=== PATIENT | female | born 1955 ===

== ENCOUNTER 2022-04-20 10:15 | Day surgery (SDC) | payer MEDICAID ==
[~2022-04-20 10:15] MED LIST: LACTATED RINGERS 1,000 ML IV SCH; LIDOCAINE 1% (10MG/ML) FOR IV START INTRADERMA PRN
[2022-04-20] MEDS ORDERED: LACTATED RINGERS 1,000 ML IV ONE (11:03)
[2022-04-20 11:17] VITALS: TEMP 97.2
[2022-04-20] MEDS ORDERED: PROPOFOL 10 MG/ML 20 ML VIAL IV ONE (11:40)
--- NOTE | 2022-04-20 11:45 | P.GSHP ---
History of Present Illness H&P Date: 04/20/22 Chief Complaint: Abnormal stool test 66-year-old female had a recent cologuard positive per patient. No bowel complaints. Family history of colon cancer in a grandmother. She has not had a previous colonoscopy. Past Medical History Past Medical History: GERD/Reflux, Hypertension History of Any Multi-Drug Resistant Organisms: None Reported Additional Past Surgical History / Comment(s): cervical fusion, d & c , cataracts removed saige Past Anesthesia/Blood Transfusion Reactions: No Reported Reaction Smoking Status: Never smoker Medications and Allergies Home Medications Medication Instructions Recorded Confirmed Type Enalapril [Vasotec] 10 mg PO BID 04/15/22 04/20/22 History FLUoxetine HCL [PROzac] 20 mg PO DAILY 04/15/22 04/20/22 History Pantoprazole [Protonix] 1 tab PO DAILY 04/15/22 04/20/22 History Zolpidem [Ambien] 12.5 mg PO HS PRN 04/15/22 04/20/22 History hydroCHLOROthiazide 25 mg PO DAILY 04/15/22 04/20/22 History Allergies Allergy/AdvReac Type Severity Reaction Status Date / Time ibuprofen AdvReac Abdominal Verified 04/20/22 11:17 Pain Surgical - Exam Vital Signs Temp Pulse Resp BP Pulse Ox 97.2 F L 92 16 152/67 95 04/20/22 11:15 04/20/22 11:15 04/20/22 11:15 04/20/22 11:15 04/20/22 11:15 Physical exam: General: Well-developed, well-nourished HEENT: Normocephalic, sclerae nonicteric Abdomen: Nontender, nondistended Extremities: No edema Neuro: Alert and oriented Assessment and Plan (1) Abnormal stool test Narrative/Plan: Will proceed with colonoscopy at this time. Current Visit: Yes Status: Acute Code(s): R19.5 - OTHER FECAL ABNORMALITIES SNOMED Code(s): 170450426
--- NOTE | 2022-04-20 12:06 | P.PCN ---
Date of Procedure: 04/20/22 Procedure(s) Performed: PREOPERATIVE DIAGNOSIS: Abnormal stool test POSTOPERATIVE DIAGNOSIS: Ascending colon polyp, rectal polyp, diverticulosis, tortuous colon PROCEDURE: Colonoscopy with snare polypectomy ANESTHESIA: MAC SURGEON: Rodger Ellison M.D. SPECIMENS: Polyps ENDOSCOPIC PROCEDURE: The patient was placed on the endoscopy table in the left decubitus position. The Olympus colonoscope was inserted into the anus and passed under direct visualization to the base of the cecum. The appendiceal noah fice was visualized. From that point the scope was slowly withdrawn inspecting all surfaces carefully. There were no neoplastic inflammatory or polypoid lesions throughout the cecum. In the ascending colon a small polyp was seen and removed using snare with cautery technique. The remainder of the ascending transverse descending and sigmoid colon appeared normal. In the rectum another small polyp was seen and removed using the snare technique. There was mild scattered diverticulosis. Digital rectal examination was normal. The patient was taken to the recovery room in stable condition per anesthesia guidelines. RECOMMENDATIONS: Await biopsy results. Repeat colonoscopy 5-7 years.
[2022-04-20 12:25] VITALS: BP 136/67; PULSE 76; RESP 16
== END 2022-04-20 12:48 | disposition home or self-care (01) ==
LOC: ORWHC2ENDO 10:15
PROVIDERS: ATTEND Surgery
DX: R19.5 Other fecal abnormalities (principal); D12.2 Benign neoplasm of ascending colon; K62.1 Rectal polyp; K57.30 Diverticulosis of large intestine without perforation or abscess without bleeding; I10 Essential (primary) hypertension; K21.9 Gastro-esophageal reflux disease without esophagitis; Z88.6 Allergy status to analgesic agent; Z79.899 Other long term (current) drug therapy; Z80.0 Family history of malignant neoplasm of digestive organs
CPT/HCPCS: 88305; 45385; J2704

== ENCOUNTER 2024-06-16 08:57 | Observation (INO) | payer MEDICAID ==
--- NOTE | 2024-06-16 09:24 | ED ---
Abdominal Pain HPI - General Chief Complaint: Abdominal Pain Stated Complaint: R side abd pain Time Seen by Provider: 06/16/24 09:07 Source: patient, RN notes reviewed Mode of arrival: ambulatory Limitations: no limitations - History of Present Illness Initial Comments: 69-year-old female with history of high cholesterol and type 2 diabetes presenting to the emergency department for complaint of right lower quadrant abdominal pain over the past 24 hours. Patient states that the pain is relatively constant however will intensify is described as a stabbing sensation. States that pain will mildly radiate to the lower mid and left lower quadrant of her abdomen. Endorses associated nausea, vomiting, diarrhea, and chills with no reported fevers. Denies hematemesis, hematochezia, melena, dysuria, hematuria, or urinary frequency/urgency. She also denies chest pain, difficulty breathing, peripheral edema, previous surgical abdominal history. Denies recent travel, trying new foods, new medications. - Related Data Home Medications Medication Instructions Recorded Confirmed Enalapril [Vasotec] 10 mg PO BID 04/15/22 06/16/24 FLUoxetine HCL [PROzac] 20 mg PO DAILY 04/15/22 06/16/24 Pantoprazole [Protonix] 40 mg PO DAILY 04/15/22 06/16/24 hydroCHLOROthiazide 25 mg PO DAILY 04/15/22 06/16/24 Magnesium Oxide [Magnesium] 500 mg PO DAILY 06/16/24 06/16/24 Zolpidem Tartrate [Ambien Cr] 12.5 mg PO HS 06/16/24 06/16/24 Allergies Allergy/AdvReac Type Severity Reaction Status Date / Time ibuprofen AdvReac Abdominal Verified 06/16/24 12:14 Pain Review of Systems ROS Statement: Those systems with pertinent positive or pertinent negative responses have been documented in the HPI. ROS Other: All systems not noted in ROS Statement are negative. Past Medical History Past Medical History: Diabetes Mellitus, GERD/Reflux, Hypertension History of Any Multi-Drug Resistant Organisms: None Reported Additional Past Surgical History / Comment(s): cervical fusion, d & c , cataracts removed saige , D&C Past Anesthesia/Blood Transfusion Reactions: No Reported Reaction Past Psychological History: Anxiety Smoking Status: Never smoker General Exam Limitations: no limitations Neck exam: Present: normal inspection. Absent: tenderness, meningismus, lymphadenopathy Respiratory exam: Present: normal lung sounds bilaterally. Absent: respiratory distress, wheezes, rales, rhonchi, stridor Cardiovascular Exam: Present: regular rate, normal rhythm, normal heart sounds. Absent: systolic murmur, diastolic murmur, rubs, gallop, clicks GI/Abdominal exam: Present: soft, tenderness (RLQ), rebound, normal bowel sounds. Absent: rigid Expanded GI/Abdominal exam: Present: psoas sign, Rovsing's sign, tenderness at McBurney's Point. Absent: Montes's sign Extremities exam: Present: normal inspection, full ROM, normal capillary refill. Absent: tenderness, pedal edema, joint swelling, calf tenderness Back exam: Present: normal inspection. Absent: CVA tenderness (R), CVA tenderness (L) Course Vital Signs 06/16/24 06/16/24 06/16/24 09:01 11:00 11:46 Temperature 98.1 F 98.3 F Pulse Rate 102 H 82 82 Respiratory 20 16 16 Rate Blood Pressure 178/81 153/80 156/84 O2 Sat by Pulse 98 98 98 Oximetry Medical Decision Making - Medical Decision Making Was pt. sent in by a medical professional or institution (, PA, HAND SEWER, urgent care, hospital, or [facility]...) When possible be specific @ -No Did you speak to anyone other than the patient for history (EMS, parent, family, police, friend...)? What history was obtained from this source @ -No Did you review nursing and triage notes (agree or disagree)? Why? @ -I reviewed and agree with nursing and triage notes Were old charts reviewed (outside hosp., previous admission, EMS record, old EKG, old radiological studies, urgent care reports/EKG's, [facility] records)? Report findings @ -No old charts were reviewed Differential Diagnosis (chest pain, altered mental status, abdominal pain women, abdominal pain men, vaginal bleeding, weakness, fever, dyspnea, syncope, headache, dizziness, GI bleed, back pain, seizure, CVA, palpatations, mental health, musculoskeletal)? @ -Differential Abdominal Pain Women: Appendicitis, Cholecystitis, diverticulosis, ischemic bowel, pancreatitis, hepatitis, UTI, gastroenteritis, AAA, incarcerated hernia, bowel obstruction, constipation, inflammatory bowel, hepatitis, peptic ulcer disease, splenic infarction, perforated viscus, vulvitis, ovarian torsion, PID, kidney stone, placenta abruption, this is not meant to be an all-inclusive list EKG interpreted by me (3pts min.). @ -none X-rays interpreted by me (1pt min.). @ -None done CT interpreted by me (1pt min.). @ -CT of the abdomen and pelvis with IV contrast concerning for a acute uncomplicated appendicitis with a incidental finding of a left ovarian 1.8 cm cystic lesion U/S interpreted by me (1pt. min.). @ -None done What testing was considered but not performed or refused? (CT, X-rays, U/S, labs)? Why? @ -None What meds were considered but not given or refused? Why? @ -None Did you discuss the management of the patient with other professionals (professionals i.e. , PA, HAND SEWER, lab, RT, psych nurse, renal social worker, probate lawyer, teacher, chief procurement officer, correctional case records supervisor)? Give summary @ -precision instrument and tool maker surgeon, dr. hook, who has agreed to admission and recommends initiating IV abx. Was smoking cessation discussed for >3mins.? @ -No Was critical care preformed (if so, how long)? @ -No Were there social determinants of health that impacted care today? How? (Homelessness, low income, unemployed, alcoholism, drug addiction, transportation, low edu. Level, literacy, decrease access to med. care, alf, rehab)? @ -No Was there de-escalation of care discussed even if they declined (Discuss DNR or withdrawal of care, Hospice)? DNR status @ -No What co-morbidities impacted this encounter? (DM, HTN, Smoking, COPD, CAD, Cancer, CVA, ARF, Chemo, Hep., AIDS, mental health diagnosis, sleep apnea, morbid obesity)? @ -None Was patient admitted / discharged? Hospital course, mention meds given and route, prescriptions, significant lab abnormalities, going to OR and other pertinent info. @ -Admitted. 69-year-old female presenting with right lower quadrant abdominal pain. Patient's pain is reproducible to palpation with a positive psoas sign in addition to tenderness over McBurney's point. With concern for appendicitis patient will be evaluated with laboratory testing and CT imaging. Labs remarkab le for leukocytosis of 24 left shift neutrophils of 21.9. CMP unremarkable. Urinalysis no signs of infection. With concern for leukocytosis patient is provided with Rocephin. CT concerning for acute uncomplicated appendicitis. Initiation of IV Unasyn. Patient is admitted to general surgery- Dr. Hook. Case discussed with Dr. Banda Undiagnosed new problem with uncertain prognosis? @ -No Drug Therapy requiring intensive monitoring for toxicity (Heparin, Nitro, Insulin, Cardizem)? @ -No Were any procedures done? @ -No Diagnosis/symptom? @ -Appendicitis Acute, or Chronic, or Acute on Chronic? @ -Acute Uncomplicated (without systemic symptoms) or Complicated (systemic symptoms)? @ -Uncomplicated Side effects of treatment? @ -No Exacerbation, Progression, or Severe Exacerbation? @ -No Poses a threat to life or bodily function? How? (Chest pain, USA, SC, pneumonia, PE, COPD, DKA, ARF, appy, cholecystitis, CVA, Diverticulitis, Homicidal, Suicidal, threat to staff... and all critical care pts) @ -No - Lab Data Result diagrams: 06/16/24 09:35 06/16/24 09:35 Lab Results 06/16/24 06/16/24 06/16/24 Range/Units 09:35 09:35 09:35 WBC 24.0 H (3.8-10.6) k/uL RBC 4.82 (3.80-5.40) m/uL Hgb 14.7 (11.4-16.0) gm/dL Hct 44.5 (34.0-46.0) % MCV 92.3 (80.0-100.0) fL MCH 30.5 (25.0-35.0) pg MCHC 33.0 (31.0-37.0) g/dL RDW 12.7 (11.5-15.5) % Plt Count 330 (150-450) k/uL MPV 7.9 Neutrophils % 91 % Lymphocytes % 4 % Monocytes % 3 % Eosinophils % 1 % Basophils % 0 % Neutrophils # 21.9 H (1.3-7.7) k/uL Lymphocytes # 0.9 L (1.0-4.8) k/uL Monocytes # 0.8 (0-1.0) k/uL Eosinophils # 0.3 (0-0.7) k/uL Basophils # 0.0 (0-0.2) k/uL Sodium 137 (137-145) mmol/L Potassium 3.7 (3.5-5.1) mmol/L Chloride 96 L (98-107) mmol/L Carbon Dioxide 28 (22-30) mmol/L Anion Gap 13 mmol/L BUN 15 (7-17) mg/dL Creatinine 0.69 (0.52-1.04) mg/dL Est GFR (CKD-EPI)AfAm >90 (>60 ml/min/1.73 sqM) Est GFR (CKD-EPI)NonAf 89 (>60 ml/min/1.73 sqM) Glucose 134 H (74-99) mg/dL Plasma Lactic Acid Lawrence 1.7 (0.7-2.0) mmol/L Calcium 9.8 (8.4-10.2) mg/dL Total Bilirubin 0.7 (0.2-1.3) mg/dL AST 25 (14-36) U/L ALT 30 (4-34) U/L Alkaline Phosphatase 67 (38-126) U/L Total Protein 8.1 (6.3-8.2) g/dL Albumin 5.0 (3.5-5.0) g/dL Amylase 56 (30-110) U/L Lipase 64 (23-300) U/L Urine Color Urine Appearance (Clear) Urine pH (5.0-8.0) Ur Specific Tiline (1.001-1.035) Urine Protein (Negative) Urine Glucose (UA) (Negative) Urine Ketones (Negative) Urine Blood (Negative) Urine Nitrite (Negative) Urine Bilirubin (Negative) Urine Urobilinogen (<2.0) mg/dL Ur Leukocyte Esterase (Negative) Urine RBC (0-5) /hpf Urine WBC (0-5) /hpf Ur Squamous Epith Cells (0-4) /hpf 06/16/24 Range/Units 11:10 WBC (3.8-10.6) k/uL RBC (3.80-5.40) m/uL Hgb (11.4-16.0) gm/dL Hct (34.0-46.0) % MCV (80.0-100.0) fL MCH (25.0-35.0) pg MCHC (31.0-37.0) g/dL RDW (11.5-15.5) % Plt Count (150-450) k/uL MPV Neutrophils % % Lymphocytes % % Monocytes % % Eosinophils % % Basophils % % Neutrophils # (1.3-7.7) k/uL Lymphocytes # (1.0-4.8) k/uL Monocytes # (0-1.0) k/uL Eosinophils # (0-0.7) k/uL Basophils # (0-0.2) k/uL Sodium (137-145) mmol/L Potassium (3.5-5.1) mmol/L Chloride (98-107) mmol/L Carbon Dioxide (22-30) mmol/L Anion Gap mmol/L BUN (7-17) mg/dL Creatinine (0.52-1.04) mg/dL Est GFR (CKD-EPI)AfAm (>60 ml/min/1.73 sqM) Est GFR (CKD-EPI)NonAf (>60 ml/min/1.73 sqM) Glucose (74-99) mg/dL Plasma Lactic Acid Lawrence (0.7-2.0) mmol/L Calcium (8.4-10.2) mg/dL Total Bilirubin (0.2-1.3) mg/dL AST (14-36) U/L ALT (4-34) U/L Alkaline Phosphatase (38-126) U/L Total Protein (6.3-8.2) g/dL Albumin (3.5-5.0) g/dL Amylase (30-110) U/L Lipase (23-300) U/L Urine Color Colorless Urine Appearance Clear (Clear) Urine pH 7.5 (5.0-8.0) Ur Specific Tiline 1.036 H (1.001-1.035) Urine Protein Negative (Negative) Urine Glucose (UA) Negative (Negative) Urine Ketones Negative (Negative) Urine Blood Trace H (Negative) Urine Nitrite Negative (Negative) Urine Bilirubin Negative (Negative) Urine Urobilinogen <2.0 (<2.0) mg/dL Ur Leukocyte Esterase Negative (Negative) Urine RBC 2 (0-5) /hpf Urine WBC 1 (0-5) /hpf Ur Squamous Epith Cells <1 (0-4) /hpf Disposition Clinical Impression: Appendicitis Disposition: ADMITTED IP TO THIS [facility] Condition: Stable Decision to Admit Reason: Admit from EC Decision Date: 06/16/24 Decision Time: 11:15
[2024-06-16] MEDS: KETOROLAC 15 MG/ML 1 ML VIAL IVP STA (09:31)
[2024-06-16] MEDS: SODIUM CHLORIDE 0.9% 1,000 ML IV ONE (09:33)
[2024-06-16 09:42] LABS: Basophils % (A) 0 %; Eosinophils # (A) 0.3 k/uL (0-0.7); Eosinophils % (A) 1 %; HCT 44.5 % (34.0-46.0); HGB 14.7 gm/dL (11.4-16.0); Lymphocytes # (A) 0.9 k/uL (1.0-4.8); Lymphocytes % (A) 4 %; MCH 30.5 pg (25.0-35.0); MCV 92.3 fL (80.0-100.0); Mean Platelet Volume 7.9; Monocytes # (A) 0.8 k/uL (0-1.0); Monocytes % (A) 3 %; Neutrophils # (A) 21.9 k/uL (1.3-7.7); Neutrophils % (A) 91 %; Platelet Count 330 k/uL (150-450); RBC 4.82 m/uL (3.80-5.40); RDW 12.7 % (11.5-15.5)
[2024-06-16 09:55] LABS: ALT 30 U/L (4-34); AST 25 U/L (14-36); African American GFR (CKD) >90 (>60 ml/min/1.73 sqM); Alkaline Phosphatase 67 U/L (38-126); Amylase 56 U/L (30-110); Anion Gap 13 mmol/L; Blood Urea Nitrogen 15 mg/dL (7-17); Calcium 9.8 mg/dL (8.4-10.2); Carbon Dioxide 28 mmol/L (22-30); Chloride 96 mmol/L (98-107); Glucose 134 mg/dL (74-99); Lipase 64 U/L (23-300); Non-African American GFR(CKD) 89 (>60 ml/min/1.73 sqM); Potassium 3.7 mmol/L (3.5-5.1); Sodium 137 mmol/L (137-145); Total Bilirubin 0.7 mg/dL (0.2-1.3); Total Protein 8.1 g/dL (6.3-8.2)
--- NOTE | 2024-06-16 10:31 | CT ---
EXAMINATION TYPE: CT abdomen pelvis w con CT DLP: 1155.8 mGycm, Automated exposure control for dose reduction was used. DATE OF EXAM: 06/16/2024 10:21 AM COMPARISON: None CLINICAL INDICATION:Female, 69 years old with history of RLQ ab pain, N/V; RLQ pain, elevated WBC TECHNIQUE: Standard CT of the abdomen and pelvis following the administration of 100 cc of Isovue 3 00 IV contrast material. Coronal and sagittal reformats were performed. FINDINGS: LOWER CHEST: Minimal posterior dependent subsegmental atelectasis is noted. Prominent right anterior epicardial fat pad. ABDOMEN LIVER: Unremarkable GALLBLADDER AND BILE DUCTS: Unremarkable. PANCREAS: Unremarkable. SPLEEN: Unremarkable. ADRENAL GLANDS: Unremarkable. KIDNEYS AND URETERS: No evidence of hydronephrosis or renal calculus. The kidneys enhance symmetrical ly. Contrast is demonstrated within both collecting systems and proximal ureters on the delayed phase . PELVIS BLADDER: Underdistended but grossly unremarkable. REPRODUCTIVE: Unremarkable anteverted uterus. Left ovarian 1.8 cm cystic lesion. ABDOMEN & PELVIS STOMACH AND BOWEL: Small hiatal hernia, duodenum is unremarkable. No evidence of bowel obstruction. A few scattered colonic diverticula without evidence for acute diverticulitis. Dilated appendix with a couple appendicoliths. The appendix measures up to 9 mm in diameter with some surrounding inflammato ry changes. No surrounding organized fluid collection or free air. PERITONEUM: No evidence of pneumoperitoneum or free fluid. VASCULATURE: Mild atherosclerotic calcifications are present throughout the abdominal aorta and its b ranches. No evidence of aortic aneurysm. MUSCULOSKELETAL: No acute osseous abnormalities. Moderate multilevel degenerative disc disease. Grade 1 retrolisthesis of L5 on S1 without pars defects. Mild retrolisthesis of L2 on L3. Mild scoliotic c urvature of the lumbar spine. LYMPH NODES: No evidence for lymphadenopathy. SOFT TISSUE/ABDOMINAL WALL: Unremarkable IMPRESSION: 1. Acute uncomplicated appendicitis. 2. Left ovarian 1.8 cm cystic lesion. Recommend further evaluation with outpatient pelvic ultrasound. Findings called to and discussed with KALEY Peña at 10:20 AM on 06/16/2024. [facility], , 06/16/2024 10:29 AM
[2024-06-16] MEDS: LACTATED RINGERS 500 ML IV ONE (11:14)
[2024-06-16] MEDS: cefTRIAXone IN SWFI 1,000 MG/10 ML SYRINGE IVP STA (11:14)
[2024-06-16] MEDS ORDERED: NALOXONE 0.4 MG/ML 1 ML VIAL IV PRN (11:21)
[2024-06-16] MEDS ORDERED: ONDANSETRON 4 MG/2 ML VIAL IVP PRN (11:21)
[2024-06-16 11:28] LABS: Appearance,Urine Clear (Clear); Bilirubin,Urine Negative (Negative); Blood,Urine Trace (Negative); Color,Urine Colorless; Glucose,Urine (UA) Negative (Negative); Ketones,Urine Negative (Negative); Leukocyte Esterase,Urine Negative (Negative); Nitrite,Urine Negative (Negative); PH, Urine 7.5 (5.0-8.0); Protein,Urine Negative (Negative); RBC,Urine 2 /hpf (0-5); Specific Gravity,Urine 1.036 (1.001-1.035); Squamous Epithelial Cell,Urine <1 /hpf (0-4); Urobilinogen,Urine <2.0 mg/dL (<2.0); WBC,Urine 1 /hpf (0-5)
[2024-06-16] MEDS ORDERED: HYDROmorphone 0.5 MG/0.5 ML SYRINGE IVP PRN (12:39)
--- NOTE | 2024-06-16 12:44 | P.GSHP ---
History of Present Illness H&P Date: 06/16/24 69-year-old female with history of high cholesterol and type 2 diabetes presenting to the emergency department for complaint of right lower quadrant abdominal pain over the past 24 hours. Patient states that the pain is relatively constant however will intensify is described as a stabbing sensation. States that pain will mildly radiate to the lower mid and left lower quadrant of her abdomen. Endorses associated nausea, vomiting, diarrhea, and chills with no reported fevers. Denies hematemesis, hematochezia, melena, dysuria, hematuria, or urinary frequency/urgency. She also denies chest pain, difficulty breathing, peripheral edema, previous surgical abdominal history. Denies recent travel, trying new foods, new medications. CT-AP shows acute appendicitis Review of Systems ROS Statement: Those systems with pertinent positive or pertinent negative responses have been documented in the HPI. ROS Other: All systems not noted in ROS Statement are negative. Past Medical History Past Medical History: Diabetes Mellitus, GERD/Reflux, Hypertension History of Any Multi-Drug Resistant Organisms: None Reported Additional Past Surgical History / Comment(s): cervical fusion, d & c , cataracts removed saige , D&C Past Anesthesia/Blood Transfusion Reactions: No Reported Reaction Past Psychological History: Anxiety Smoking Status: Never smoker General Exam General-NAD CVS-RRR Lungs-NLB Abdomen-soft, TTP RLQ, mild distention Ext-no edema 69 year old female with acute appendicitis -OR tomorrow AM for Appendectomy -CLD, NPO/midnight -Zosyn -Pain and Nausea Control -Medicine Consult for medical management Robinzainab Hook [facility] [phone] Past Medical History Past Medical History: Diabetes Mellitus, GERD/Reflux, Hypertension History of Any Multi-Drug Resistant Organisms: None Reported Additional Past Surgical History / Comment(s): cervical fusion, d & c , catarac ts removed saige , D&C Past Anesthesia/Blood Transfusion Reactions: No Reported Reaction Past Psychological History: Anxiety Smoking Status: Never smoker Past Alcohol Use History: Occasional Additional Past Alcohol Use History / Comment(s): quit more than 20 yrs ago Past Drug Use History: None Reported Medications and Allergies Home Medications Medication Instructions Recorded Confirmed Type Enalapril [Vasotec] 10 mg PO BID 04/15/22 06/16/24 History FLUoxetine HCL [PROzac] 20 mg PO DAILY 04/15/22 06/16/24 History Pantoprazole [Protonix] 40 mg PO DAILY 04/15/22 06/16/24 History hydroCHLOROthiazide 25 mg PO DAILY 04/15/22 06/16/24 History Magnesium Oxide [Magnesium] 500 mg PO DAILY 06/16/24 06/16/24 History Zolpidem Tartrate [Ambien Cr] 12.5 mg PO HS 06/16/24 06/16/24 History Allergies Allergy/AdvReac Type Severity Reaction Status Date / Time ibuprofen AdvReac Abdominal Verified 06/16/24 12:14 Pain Surgical - Exam Vital Signs Temp Pulse Resp BP Pulse Ox 98.1 F 102 H 20 178/81 98 06/16/24 09:01 06/16/24 09:01 06/16/24 09:01 06/16/24 09:01 06/16/24 09:01 Results - Labs 06/16/24 09:35 06/16/24 09:35 Abnormal Lab Results - Last 24 Hours (Table) 06/16/24 06/16/24 06/16/24 Range/Units 09:35 09:35 11:10 WBC 24.0 H (3.8-10.6) k/uL Neutrophils # 21.9 H (1.3-7.7) k/uL Lymphocytes # 0.9 L (1.0-4.8) k/uL Chloride 96 L (98-107) mmol/L Glucose 134 H (74-99) mg/dL Ur Specific Ponce 1.036 H (1.001-1.035) Urine Blood Trace H (Negative) Diabetes panel 06/16/24 Range/Units 09:35 Sodium 137 (137-145) mmol/L Potassium 3.7 (3.5-5.1) mmol/L Chloride 96 L (98-107) mmol/L Carbon Dioxide 28 (22-30) mmol/L BUN 15 (7-17) mg/dL Creatinine 0.69 (0.52-1.04) mg/dL Glucose 134 H (74-99) mg/dL Calcium 9.8 (8.4-10.2) mg/dL AST 25 (14-36) U/L ALT 30 (4-34) U/L Alkaline Phosphatase 67 (38-126) U/L Total Protein 8.1 (6.3-8.2) g/dL Albumin 5.0 (3.5-5.0) g/dL Calcium panel 06/16/24 Range/Units 09:35 Calcium 9.8 (8.4-10.2) mg/dL Albumin 5.0 (3.5-5.0) g/dL Pituitary panel 06/16/24 Range/Units 09:35 Sodium 137 (137-145) mmol/L Potassium 3.7 (3.5-5.1) mmol/L Chloride 96 L (98-107) mmol/L Carbon Dioxide 28 (22-30) mmol/L BUN 15 (7-17) mg/dL Creatinine 0.69 (0.52-1.04) mg/dL Glucose 134 H (74-99) mg/dL Calcium 9.8 (8.4-10.2) mg/dL Adrenal panel 06/16/24 Range/Units 09:35 Sodium 137 (137-145) mmol/L Potassium 3.7 (3.5-5.1) mmol/L Chloride 96 L (98-107) mmol/L Carbon Dioxide 28 (22-30) mmol/L BUN 15 (7-17) mg/dL Creatinine 0.69 (0.52-1.04) mg/dL Glucose 134 H (74-99) mg/dL Calcium 9.8 (8.4-10.2) mg/dL Total Bilirubin 0.7 (0.2-1.3) mg/dL AST 25 (14-36) U/L ALT 30 (4-34) U/L Alkaline Phosphatase 67 (38-126) U/L Total Protein 8.1 (6.3-8.2) g/dL Albumin 5.0 (3.5-5.0) g/dL
[2024-06-16] MEDS: PIPERACILLIN-TAZOBACTAM 3.375 GM in SODIUM CHLORIDE 0.9% 100 ML IVPB SCH (13:27)
[2024-06-16] MEDS: SODIUM CHLORIDE 0.9% 1,000 ML IV SCH (13:28)
[2024-06-16] MEDS: PANTOPRAZOLE 40 MG TABLET PO SCH (14:38)
[2024-06-16] MEDS: FLUoxetine HCL 20 MG CAP PO SCH (14:39)
[2024-06-16] MEDS: lisinopriL 20 MG TAB PO SCH (14:39)
[2024-06-16] MEDS: KETOROLAC 15 MG/ML 1 ML VIAL IVP PRN (17:32)
[2024-06-16] MEDS: ZOLPIDEM 5 MG TAB PO SCH (20:04)
[2024-06-17] MEDS ORDERED: MIDAZOLAM 2 MG/2 ML VIAL ONE (07:06)
[2024-06-17] MEDS ORDERED: LIDOCAINE 1% INJ 10MG/ML (20 ML MDV) ONE (07:06)
[2024-06-17] MEDS ORDERED: PHENYLEPHRINE-0.9% NACL SYG 1,000 MCG/10 ML SYRINGE ONE (07:06)
[2024-06-17] MEDS ORDERED: GLYCOPYRROLATE 0.2 MG/ML 2 ML VIAL ONE (07:06)
[2024-06-17] MEDS ORDERED: ONDANSETRON 4 MG/2 ML VIAL ONE (07:06)
[2024-06-17] MEDS ORDERED: SUCCINYLCHOLINE CHLORIDE 200 MG/10 ML VIAL IV ONE (07:06)
[2024-06-17] MEDS ORDERED: ROCURONIUM 10 MG/ML (5 ML VIAL) IV ONE (07:06)
[2024-06-17] MEDS ORDERED: PROPOFOL 10 MG/ML 20 ML VIAL IV ONE (07:06)
[2024-06-17] MEDS ORDERED: fentaNYL (PF) 50 MCG/ML 2 ML AMP ONE (07:06)
[2024-06-17] MEDS ORDERED: NEOSTIGMINE 1 MG/ML 10 ML VIAL ONE (07:06)
[2024-06-17] MEDS ORDERED: LIDOCAINE 4% LTA KIT (4 ML) TOPICAL ONE (07:06)
[2024-06-17] MEDS: IV FLUID CONTINUATION 1,000 ML IV ONE (07:08)
[2024-06-17] MEDS: BUPIVACAINE (PF) 0.25% 30 ML VIAL SQ ONE ×3 (07:31→07:48)
[2024-06-17 09:17] LABS: BUN/Creat Ratio 11.11 Ratio (12.00-20.00); Carbon Dioxide 26.3 mmol/L (21.6-31.8); Chloride 102 mmol/L (96-109); Glucose 111 mg/dL (70-110); Potassium 4.4 mmol/L (3.5-5.5); Sodium 139 mmol/L (135-145)
[2024-06-17 09:24] LABS: Basophils # (A) 0.06 X 10*3/uL (0.00-0.10); Basophils % (A) 0.6 %; Eosinophils # (A) 0.08 X 10*3/uL (0.04-0.35); Eosinophils % (A) 0.8 %; HGB 12.5 g/dL (12.0-15.0); Lymphocytes # (A) 1.23 X 10*3/uL (0.90-5.00); Lymphocytes % (A) 12.5 %; MCH 30.9 pg (27.0-32.0); MCHC 33.8 g/dL (32.0-37.0); MCV 91.4 FL (80.0-97.0); Mean Platelet Volume 10.7 FL (9.5-12.2); Monocytes # (A) 0.81 X 10*3/uL (0.20-1.00); Monocytes % (A) 8.2 %; NRBC Per 100 WBC 0 X 10*3/uL (0.00-0.01); Neutrophils # (A) 7.64 X 10*3/uL (1.80-7.70); Neutrophils % (A) 77.5 %; Platelet Count 257 X 10*3/uL (140-440); RBC 4.05 X 10*6/uL (4.10-5.20); RDW 12.5 % (11.5-14.5); WBC 9.86 X 10*3/uL (4.50-10.00)
--- NOTE | 2024-06-17 09:28 | P.OP ---
Date of Procedure: 06/17/24 Preoperative Diagnosis: Acute Appendicitis Postoperative Diagnosis: Acute Appendicitis Procedure(s) Performed: Laparoscopic Appendectomy Anesthesia: MINH Surgeon: Robin Hook Estimated Blood Loss (ml): 25 Pathology: other (Appendix) Condition: stable Disposition: PACU Description of Procedure: The patient was seen by me in the preoperative holding area. The risks of the procedure were explained. She was taken to the operating room and given perioperative antibiotics prior to coming to the surgery. General anesthesia was carried out without difficulty and a Crowder catheter was inserted. The left arm was tucked and the abdomen was prepped with Betadine and draped in sterile fashion. A 5-mm blunt port was inserted infra-umbilically at the level of the umbilicus under direct vision of a 5-mm 0-degree laparoscope. Once we were inside the abdominal cavity, CO2 was instilled to attain an adequate pneumoperitoneum. A left lower quadrant 5-mm port was placed under direct vision and a 12-mm port in the suprapubic region. The 5-mm scope was introduced at the umbilical port and the appendix was easily visualized. The base of the cecum was acutely inflamed but not perforated. I then was easily able to grasp the mesoappendix and create a window between the base of the mesoappendix and the base of the appendix. The window is big enough to get an Endo MIRA blue cartridge through it and fired across the base of the mesoappendix without difficulty. I reloaded with a red vascular cartridge, came across the mesoappendix without difficulty. I then placed the appendix in an Endobag and brought out through the suprapubic port without difficulty. I reinserted the suprapubic port and irrigated out the right lower quadrant until dry. One final inspection revealed no bleeding from the staple line. We then removed all ports under direct vision, and there was no bleeding from the abdominal trocar sites. The pneumoperitoneum was then deflated and the suprapubic fascial defect was closed with 0-Vicryl suture. The skin incision was injected with 0.25% Marcaine and closed with 4-0 Monocryl suture. Steri-strips and sterile dressings were applied. No complications. Minimal blood loss. Specimen is the appendix. Brought to the recovery room in stable condition.
[2024-06-17 13:14] LABS: INR 0.97 sec (0.93-1.11); Prothrombin Time 11.1 sec (9.9-11.9)
--- NOTE | 2024-06-17 18:14 | P.CONS ---
History of Present Illness - Reason for Consult Consult date: 06/16/24 Medical management - Chief Complaint Right-sided abdominal pain - History of Present Illness 69-year-old female with history of high cholesterol and type 2 diabetes presenting to the emergency department for complaint of right lower quadrant abdominal pain over the past 24 hours. Patient states that the pain is relatively constant however will intensify is described as a stabbing sensation. States that pain will mildly radiate to the lower mid and left lower quadrant of her abdomen. Endorses associated nausea, vomiting, diarrhea, and chills with no reported fevers. Denies hematemesis, hematochezia, melena, dysuria, hematuria, or urinary frequency/urgency. She also denies chest pain, difficulty breathing, peripheral edema, previous surgical abdominal history. Denies recent travel, trying new foods, new medications. Blood work completed in ED reveals a WBC of 24, hemoglobin of 14.7 and platelet count of 330, sodium 137, potassium 3.7, BUNs/creatinine 15/0.69 and blood glucose of 134, lactic acid of 1.7; UA is unremarkable -CT of the abdomen and pelvis with IV contrast concerning for a acute uncomplicated appendicitis with a incidental finding of a left ovarian 1.8 cm cystic lesion Review of Systems REVIEW OF SYSTEMS: CONSTITUTIONAL: No fever, no malaise, no fatigue. HEENT: No recent visual problems or hearing problems. Denied any sore throat. CARDIOVASCULAR: No chest pain, orthopnea, PND, no palpitations, no syncope. PULMONARY: No shortness of breath, no cough, no hemoptysis. GASTROINTESTINAL: No diarrhea, no nausea, no vomiting, no abdominal pain. NEUROLOGICAL: No headaches, no weakness, no numbness. HEMATOLOGICAL: Denies any bleeding or petechiae. GENITOURINARY: Denies any burning micturition, frequency, or urgency. MUSCULOSKELETAL/RHEUMATOLOGICAL: Denies any joint pain, swelling, or any muscle pain. ENDOCRINE: Denies any polyuria or polydipsia. The rest of the 14-point review of systems is negative. Past Medical History Past Medical History: Diabetes Mellitus, GERD/Reflux, Hypertension History of Any Multi-Drug Resistant Organisms: None Reported Additional Past Surgical History / Comment(s): cervical fusion, d & c , cat aracts removed saige , D&C Past Anesthesia/Blood Transfusion Reactions: No Reported Reaction Past Psychological History: Anxiety Smoking Status: Never smoker Medications and Allergies Home Medications Medication Instructions Recorded Confirmed Type Enalapril [Vasotec] 10 mg PO BID 04/15/22 06/16/24 History FLUoxetine HCL [PROzac] 20 mg PO DAILY 04/15/22 06/16/24 History Pantoprazole [Protonix] 40 mg PO DAILY 04/15/22 06/16/24 History hydroCHLOROthiazide 25 mg PO DAILY 04/15/22 06/16/24 History Magnesium Oxide [Magnesium] 500 mg PO DAILY 06/16/24 06/16/24 History Zolpidem Tartrate [Ambien Cr] 12.5 mg PO HS 06/16/24 06/16/24 History Allergies Allergy/AdvReac Type Severity Reaction Status Date / Time ibuprofen AdvReac Abdominal Verified 06/16/24 12:14 Pain Physical Exam Vitals: Vital Signs Temp Pulse Pulse Resp BP BP Pulse Ox 06/16/24 12:44 98.8 F 78 20 145/82 98 06/16/24 11:46 98.3 F 82 16 156/84 98 06/16/24 11:00 82 16 153/80 98 06/16/24 09:01 98.1 F 102 H 20 178/81 98 Intake and Output 06/16/24 06/16/24 06/16/24 06:59 14:59 22:59 Other: Weight 83.915 kg Neck exam: Present: normal inspection. Absent: tenderness, meningismus, lymphadenopathy Respiratory exam: Present: normal lung sounds bilaterally. Absent: respiratory distress, wheezes, rales, rhonchi, stridor Cardiovascular Exam: Present: regular rate, normal rhythm, normal heart sounds. Absent: systolic murmur, diastolic murmur, rubs, gallop, clicks GI/Abdominal exam: Present: soft, tenderness (RLQ), rebound, normal bowel sounds. Absent: rigid Expanded GI/Abdominal exam: Present: psoas sign, Rovsing's sign, tenderness at McBurney's Point. Absent: Montes's sign Extremities exam: Present: normal inspection, full ROM, normal capillary refill. Absent: tenderness, pedal edema, joint swelling, calf tenderness Back exam: Present: normal inspection. Absent: CVA tenderness (R), CVA tenderness (L) Results CBC & Chem 7: 06/17/24 06:25 06/17/24 06:25 Labs: Abnormal Lab Results - Last 24 Hours (Table) 06/16/24 06/16/24 06/16/24 Range/Units 09:35 09:35 11:10 WBC 24.0 H (3.8-10.6) k/uL Neutrophils # 21.9 H (1.3-7.7) k/uL Lymphocytes # 0.9 L (1.0-4.8) k/uL Chloride 96 L (98-107) mmol/L Glucose 134 H (74-99) mg/dL Ur Specific [place] 1.036 H (1.001-1.035) Urine Blood Trace H (Negative) Assessment and Plan Assessment: 1. Abdominal pain; acute appendicitis -Patient has been evaluated by general surgery; plan to keep patient n.p.o. after midnight; OR tomorrow morning 2. Leukocytosis/sepsis; related to acute appendicitis; patient has been placed on IV antibiotics in form of Zosyn 3.375 g IV every 8 hours; we will continue; blood cultures are ordered and pending 3. Hypertension; enalapril 10 mg twice daily; hydrochlorothiazide 25 mg daily 4. Gastroesophageal reflux disease; Protonix 40 mg daily 5. Depression; Prozac 20 mg daily 6. Insomnia; Ambien CR 12.5 mg nightly DVT prophylaxis; SCDs CODE STATUS; full code
--- NOTE | 2024-06-17 18:16 | P.PN ---
Subjective Progress Note Date: 06/17/24 69-year-old female with history of high cholesterol and type 2 diabetes presenting to the emergency department for complaint of right lower quadrant abdominal pain over the past 24 hours. Patient states that the pain is relatively constant however will intensify is described as a stabbing sensation. States that pain will mildly radiate to the lower mid and left lower quadrant of her abdomen. Endorses associated nausea, vomiting, diarrhea, and chills with no reported fevers. Denies hematemesis, hematochezia, melena, dysuria, hematuria, or urinary frequency/urgency. She also denies chest pain, difficulty breathing, peripheral edema, previous surgical abdominal history. Denies recent travel, trying new foods, new medications. Blood work completed in ED reveals a WBC of 24, hemoglobin of 14.7 and platelet count of 330, sodium 137, potassium 3.7, BUNs/creatinine 15/0.69 and blood glucose of 134, lactic acid of 1.7; UA is unremarkable -CT of the abdomen and pelvis with IV contrast concerning for a acute uncomplicated appendicitis with a incidental finding of a left ovarian 1.8 cm cystic lesion -Patient seen and evaluated at bedside; status post laparoscopic appendectomy; POD #0 -Patient has been initiated on a diet -Surgery planning to monitor overnight prior to discharge Objective - Vital Signs Vital signs: Vital Signs Temp 97 F L 06/17/24 07:59 Pulse 77 06/17/24 09:45 Resp 16 06/17/24 08:55 BP 137/82 06/17/24 09:45 Pulse Ox 96 06/17/24 09:45 FiO2 Intake & Output 06/16/24 06/17/24 06/17/24 18:59 06:59 18:59 Intake Total 580 240 700 Output Total 25 Balance 580 240 675 Weight 83.915 kg 83.915 kg Intake: IV 700 Intake, IV Titration 100 Amount Piperacillin-Tazobactam 3 100 .375 gm In Sodium Chloride 0.9% 100 ml @ 25 mls/hr IVPB Q8H [facility] Rx#: [id number] Oral 480 240 Output: Estimated Blood Loss 25 Other: # Voids 2 3 - Exam Neck exam: Present: normal inspection. Absent: tenderness, meningismus, lymphadenopathy Respiratory exam: Present: normal lung sounds bilaterally. Absent: respiratory distress, wheezes, rales, rhonchi, stridor Cardiovascular Exam: Present: regular rate, normal rhythm, normal heart sounds. Absent: systolic murmur, diastolic murmur, rubs, gallop, clicks GI/Abdominal exam: Present: soft, tenderness (RLQ), rebound, normal bowel sounds. Absent: rigid Expanded GI/Abdominal exam: Present: psoas sign, Rovsing's sign, tenderness at McBurney's Point. Absent: Montes's sign Extremities exam: Present: normal inspection, full ROM, normal capillary refill. Absent: tenderness, pedal edema, joint swelling, calf tenderness Back exam: Present: normal inspection. Absent: CVA tenderness (R), CVA tenderness (L) - Labs CBC & Chem 7: 06/17/24 06:25 06/17/24 06:25 Labs: Abnormal Lab Results - Last 24 Hours (Table) 06/16/24 06/17/24 06/17/24 Range/Units 11:10 06:25 06:25 RBC 4.05 L (4.10-5.20) X 10*6/uL Hct 37.0 L (37.2-46.3) % BUN/Creatinine Ratio 11.11 L (12.00-20.00) Ratio Glucose 111 H (70-110) mg/dL Ur Specific [place] 1.036 H (1.001-1.035) Urine Blood Trace H (Negative) Assessment and Plan Assessment: 1. Abdominal pain; acute appendicitis -Patient has been evaluated by general surgery; plan to keep patient n.p.o. after midnight; OR tomorrow morning 2. Leukocytosis/sepsis; related to acute appendicitis; patient has been placed on IV antibiotics in form of Zosyn 3.375 g IV every 8 hours; we will continue; blood cultures are ordered and pending 3. Hypertension; enalapril 10 mg twice daily; hydrochlorothiazide 25 mg daily 4. Gastroesophageal reflux disease; Protonix 40 mg daily 5. Depression; Prozac 20 mg daily 6. Insomnia; Ambien CR 12.5 mg nightly DVT prophylaxis; SCDs CODE STATUS; full code
[2024-06-17] MEDS: HYDROcodone/APAP 10-325MG 1 EACH TAB PO PRN (20:42)
[2024-06-18 01:38] VITALS: RESP 16
[2024-06-18 09:19] LABS: Basophils # (A) 0.05 X 10*3/uL (0.00-0.10); Basophils % (A) 0.8 %; Eosinophils % (A) 1.6 %; HCT 36.2 % (37.2-46.3); HGB 11.6 g/dL (12.0-15.0); Lymphocytes # (A) 1.47 X 10*3/uL (0.90-5.00); Lymphocytes % (A) 23.2 %; MCH 30.4 pg (27.0-32.0); MCV 94.8 FL (80.0-97.0); Mean Platelet Volume 10.8 FL (9.5-12.2); Monocytes # (A) 0.72 X 10*3/uL (0.20-1.00); Monocytes % (A) 11.4 %; NRBC Per 100 WBC 0 X 10*3/uL (0.00-0.01); Neutrophils # (A) 3.98 X 10*3/uL (1.80-7.70); Neutrophils % (A) 62.7 %; Platelet Count 236 X 10*3/uL (140-440); RBC 3.82 X 10*6/uL (4.10-5.20); RDW 12.6 % (11.5-14.5); WBC 6.34 X 10*3/uL (4.50-10.00)
[2024-06-18 09:28] LABS: Blood Urea Nitrogen 6.4 mg/dL (9.0-27.0); Glucose 119 mg/dL (70-110)
[2024-06-18 09:29] LABS: Calcium 8.6 mg/dL (8.7-10.3); Carbon Dioxide 26.5 mmol/L (21.6-31.8); Chloride 106 mmol/L (96-109); Sodium 142 mmol/L (135-145)
[2024-06-18 09:50] VITALS: BP 145/76; PULSE 67; TEMP 97.3
--- NOTE | 2024-06-18 10:14 | P.PN ---
Subjective From records 69-year-old female with history of high cholesterol and type 2 diabetes presenting to the emergency department for complaint of right lower quadrant abdominal pain over the past 24 hours. Patient states that the pain is relatively constant however will intensify is described as a stabbing sensation. States that pain will mildly radiate to the lower mid and left lower quadrant of her abdomen. Endorses associated nausea, vomiting, diarrhea, and chills with no reported fevers. Denies hematemesis, hematochezia, melena, dysuria, hem aturia, or urinary frequency/urgency. She also denies chest pain, difficulty breathing, peripheral edema, previous surgical abdominal history. Denies recent travel, trying new foods, new medications. Blood work completed in ED reveals a WBC of 24, hemoglobin of 14.7 and platelet count of 330, sodium 137, potassium 3.7, BUNs/creatinine 15/0.69 and blood glucose of 134, lactic acid of 1.7; UA is unremarkable -CT of the abdomen and pelvis with IV contrast concerning for a acute uncomplicated appendicitis with a incidental finding of a left ovarian 1.8 cm cystic lesion -Patient seen and evaluated at bedside; status post laparoscopic appendectomy; POD #0 -Patient has been initiated on a diet -Surgery planning to monitor overnight prior to discharge 06/18 Started seeing the patient today, she is a pleasant 69 years old female who presents with abdominal pain secondary to acute appendicitis status post laparoscopic appendectomy on 06/17. Today's postop day #1. Patient was seen walking in her room freely and steadily. Denies abdominal pain. She eats well and diet has been advised by surgery team with the plan to discharge her today if she tolerates her diet per the staff. She denies any other new complaints. Patient's looks wants to go home irregularly She is afebrile, CBC and BMP from today are unremarkable She is on Zosyn. Patient looks medically stable Objective - Vital Signs Vital signs: Vital Signs Temp 97.3 F L 06/18/24 07:26 Pulse 67 06/18/24 07:26 Resp 16 06/18/24 08:08 BP 145/76 06/18/24 07:26 Pulse Ox 96 06/18/24 07:26 FiO2 Intake & Output 06/17/24 06/18/24 06/18/24 18:59 06:59 18:59 Intake Total 700 Output Total 25 Balance 675 Weight 83.915 kg Intake: IV 700 Output: Estimated Blood Loss 25 Other: # Voids 2 3 - Exam GENERAL: The patient is alert and oriented x3, not in any acute distress. Well developed, well nourished. HEENT: Pupils are round and equally reacting to light. EOMI. No scleral icterus. No conjunctival pallor. Normocephalic, atraumatic. No pharyngeal erythema. No thyromegaly. CARDIOVASCULAR: S1 and S2 present. No murmurs, rubs, or gallops. PULMONARY: Chest is clear to auscultation, no wheezing , no crackles. -ABDOMEN: Soft, nontender, nondistended, normoactive bowel sounds. No palpable organomegaly. Abdominal surgical puncture wounds are healing MUSCULOSKELETAL: No joint swelling or deformity. EXTREMITIES: No cyanosis, clubbing, or pedal edema. NEUROLOGICAL: Gross neurological examination did not reveal any focal deficits. SKIN: No rashes. no petechiae. - Labs CBC & Chem 7: 06/18/24 03:28 06/18/24 03:28 Labs: Abnormal Lab Results - Last 24 Hours (Table) 06/18/24 06/18/24 Range/Units 03:28 03:28 RBC 3.82 L (4.10-5.20) X 10*6/uL Hgb 11.6 L (12.0-15.0) g/dL Hct 36.2 L (37.2-46.3) % BUN 6.4 L (9.0-27.0) mg/dL BUN/Creatinine Ratio 8.00 L (12.00-20.00) Ratio Glucose 119 H (70-110) mg/dL Calcium 8.6 L (8.7-10.3) mg/dL Assessment and Plan Assessment: 1. Right upper quadrant pain/acute cholecystitis -Patient has been admitted with intractable nausea and vomiting with right upper quadrant pain -CT of the abdomen and pelvis completed reveals findings strongly suspicious for acute cholecystitis -S/p laparoscopic cholecystectomy by surgery team -Patient has been placed on IV Zosyn; we will monitor CBC, CRP and procalcitonin -Follow-up pathology results 2. Leukocytosis; likely associated with acute cholecystitis -White blood count trending down to 14 upon admission down to 11.7 this morning -Patient remains on IV Zosyn -We will continue to monitor CBC; cultures are obtained 3. Hyponatremia; likely associated with diuretic use; patient is on hydrochlorothiazide -We will continue hydrochlorothiazide since sodium is continuing to improve and is at 129 this morning, up from 127 upon admission -We will monitor electrolytes closely 4. Hypokalemia; will supplement with oral potassium; monitor electrolytes and supplement as needed 5. Hypertension; patient takes Cozaar 25 mg p.o. nightly; hydrochlorothiazide 25 mg daily 6. Gastroesophageal reflux disease; omeprazole 20 mg daily DVT prophylaxis; SCDs only given expected surgery next 24 hours CODE STATUS; full code Patient is medically stable for discharge today once cleared by surgery team Will defer antibiotic management to surgery team
--- NOTE | 2024-06-18 10:36 | P.DS ---
Providers Date of admission: 06/16/24 11:30 Expected date of discharge: 06/18/24 Attending physician: Robin Hook DO Consults: 06/16/24 12:38 Consult Physician Routine Consulting Provider: Judi Dobbs Consult Reason/Comments: Medical Management Do you want consulting provider notified?: Yes Primary care physician: Leyla Clement Hospital Course: Discharge diagnosis 1. Acute appendicitis Hospital course This is a 69-year-old female who presented with right lower quadrant abdominal pain. CT scan of abdomen pelvis that showed acute appendicitis. Patient is status post laparoscopic appendectomy with Dr. Hook. Patient tolerated surgery well. Her pain is controlled. She is tolerating diet. She is having flatus. She has been up and ambulating. Her white count has normalized. She is afebrile. She is stable for discharge. Please refer to chart for any further details. Physician [employer] note has been reviewed by physician. Signing provider agrees with the documented findings, assessment, and plan of care. Attestation Patient doing well status post laparoscopic appendectomy. Pain is controlled. Tolerating diet. White count normalized. Stable for discharge. Follow-up as outpatient. Dany Small DO Patient Condition at Discharge: Stable Plan - Discharge Summary Discharge Rx Participant: Yes New Discharge Prescriptions: New HYDROcodone/APAP 5-325MG [Ruby 5-325] 1 tab PO Q6HR PRN 2 Days #8 tab PRN Reason: Pain Continue FLUoxetine HCL [PROzac] 20 mg PO DAILY hydroCHLOROthiazide 25 mg PO DAILY Pantoprazole [Protonix] 40 mg PO DAILY Zolpidem Tartrate [Ambien Cr] 12.5 mg PO HS Enalapril [Vasotec] 10 mg PO BID Magnesium Oxide [Magnesium] 500 mg PO DAILY Discharge Medication List Enalapril [Vasotec] 10 mg PO BID 04/15/22 [History] FLUoxetine HCL [PROzac] 20 mg PO DAILY 04/15/22 [History] Pantoprazole [Protonix] 40 mg PO DAILY 04/15/22 [History] hydroCHLOROthiazide 25 mg PO DAILY 04/15/22 [History] Magnesium Oxide [Magnesium] 500 mg PO DAILY 06/16/24 [History] Zolpidem Tartrate [Ambien Cr] 12.5 mg PO HS 06/16/24 [History] HYDROcodone/APAP 5-325MG [Ruby 5-325] 1 tab PO Q6HR PRN 2 Days #8 tab 06/18/24 [Rx] Follow up Appointment(s)/Referral(s): Leyla Clement DO [Primary Care Provider] - 1-2 days Robin Hook DO [Medical Doctor] - 06/26/24 10:45 am (folllow up will be with Dr. Gracia) Activity/Diet/Wound Care/Special Instructions: No driving while taking Ruby No lifting over 10 pounds You may shower. No soaking or tub baths for 2 weeks Very light activity until you are reevaluated at your follow up appointment with your surgeon Do not take both Tylenol and Ruby together Discharge Disposition: HOME SELF-CARE
== END 2024-06-18 13:26 | disposition home or self-care (01) ==
LOC: EC 08:57 → 4SSUR 11:30 → INTOOBSV 11:30 → 4SSUR 11:40
PROVIDERS: ADMIT Surgery; ATTEND Surgery
DX: K35.80 Unspecified acute appendicitis (principal); A41.9 Sepsis, unspecified organism; E87.1 Hypo-osmolality and hyponatremia; E11.9 Type 2 diabetes mellitus without complications; E78.00 Pure hypercholesterolemia, unspecified; I10 Essential (primary) hypertension; K21.9 Gastro-esophageal reflux disease without esophagitis; F41.9 Anxiety disorder, unspecified; F32.A Depression, unspecified; G47.00 Insomnia, unspecified; Z79.899 Other long term (current) drug therapy; Z88.6 Allergy status to analgesic agent; Z98.1 Arthrodesis status; Z98.49 Cataract extraction status, unspecified eye; Z98.890 Other specified postprocedural states
CPT/HCPCS: 44970; 96376; 96361; 96374; 99285; 36415; 88304; 80053; 80048 ×2; 82150; 83605; 83690; 85025 ×3; 85610; 81001; 74177; G0378; J2543 ×3; J2250; J0330; J2710; J2405; J2003; J0696; J3010; J1885; J2704; Q9967; J2371; J0665; J1596